=== PATIENT | female | born 1970 | race Caucasian/White ===

== ENCOUNTER → 2017-02-13 | Outpatient (CLI) | payer OTHER | LOC: FIMAGING 07:44 | DX: Z12.31 Encounter for screening mammogram for malignant neoplasm of breast (principal); Z80.3 Family history of malignant neoplasm of breast | CPT/HCPCS: G0202 ==

== ENCOUNTER → 2017-02-27 | Outpatient (CLI) | payer OTHER | LOC: FIMAGING 13:28 | PROVIDERS: ATTEND Physician Assistant Medical | DX: Z12.39 Encounter for other screening for malignant neoplasm of breast (principal); R92.0 Mammographic microcalcification found on diagnostic imaging of breast | CPT/HCPCS: G0206 ==

== ENCOUNTER → 2017-11-30 | Outpatient (CLI) | payer OTHER | LOC: FIMAGING 08:36 | PROVIDERS: ATTEND Physician Assistant | DX: J98.8 Other specified respiratory disorders (principal) ==

== ENCOUNTER → 2017-12-29 | Outpatient (CLI) | payer OTHER | PROVIDERS: ATTEND Internal Medicine Pulmonary Disease | DX: R13.10 Dysphagia, unspecified (principal); R05 Cough | CPT/HCPCS: 92611-GN ==